=== PATIENT | male | born 2000 | race Caucasian/White ===

== ENCOUNTER 2025-06-02 05:55 | Outpatient (CLI) | payer BC, SELFPAY ==
[2025-06-02] VITALS (8 sets, daily range): BP systolic 121–125; BP diastolic 83–86; PULSE 61–84; RESP 18; TEMP 36.9; O2SAT 95–99; BMI 28.7
--- OUTSIDE RECORDS SUMMARY | 2025-06-02 05:57 | XMS_ITS | Encounter Summary ---
Author Organization [facility] Address [address] [place] [address] Care Team Providers Care Magnaflux Operator Name Role Phone Elsewhere, Pcp Primary Care Provider Unavailabl e Encounter Details Date Type Department Care Team (Latest Contact Info) Description 12/04/2024 Intake [facility] Social History Tobacco Use Types Packs/Day Years Used Date Smoking Tobacco: Never Alcohol Use Standard Drinks/Week Comments Yes 10 (1 standard drink = 0.6 oz pu re alcohol) [facility] Utilities Answer Date Recorded In the past 12 months has [facility] [employer], gas, oil, or water [place] threatened to shut off services in your home? No 12/04/2024 Humiliation, Afraid, Rape, and Kick questionnair e Answer Date Recorded Within the last year, have y ou been afraid of your partner or ex-partner? No 12/04/2024 Within the last year, have y ou been humiliated or emotionally abused in other ways by your partner or ex-partner? No Within the last year, have y ou been kicked, hit, slapped, or otherwise physically hurt by your partner or ex-partner? No 12/04/2024 Within the last year, have y ou been raped or forced to have any kind of sexual activity by your partner or ex-partner? No 12/04/2024 Hunger Vital Sign Answer Date Recorded Within the past 12 months, y ou worried that your food would run out before you got the money to buy more. Never true 12/05/19 25 Within the past 12 months, t he food you bought just didn't last and you didn't have money to get more. Never true 12/04/2024 PRAPARE - Transportation Answer Date Re corded In the past 12 months, has l ack of transportation kept you from medical appointments or from getting medications? No 11/2024 In the past 12 months, has l ack of transportation kept you from meetings, work, or from getting things needed for daily living? No 12/04/2024 Housing Stability Answer Date Recorded What is your living situation today? I have a [facility] place to live 12/04/2024 Sex and Gender Information Value Date Recorded Sex Assigned at Not on file Legal Sex Male 9:26 AM CDT Gender Identity Not on file Sexual Orientation Not on file documented as of this encounter Plan of Treatment Not on file documented as of this encounter Visit Diagnoses Not on filedocumented in this encounter Care Teams Magnaflux Operator Relationship Specialty Start Date End Date Elsewhere, Pcp PCP - General Internal Medicine 12/04/24 documented as of this encounter
--- OUTSIDE RECORDS SUMMARY | 2025-06-02 05:57 | XMS_ITS | Clinical Summary ---
Author Organization [employer] [facility] Address [address] [place] [id number] Care Team Providers Care Lumber Grader Name Role Phone Matthew Estrada MD Primary Care Provider Allergies No known active allergies Medications metoprolol succinate (TOPROL XL) 50 mg sustained-releas e tabletIndication s:HTN (hypertension) Take 1 Tablet (50 mg) by mouth once daily. 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 Encounters Date Type Department Care Team Description 05/26/2025 10:30 AM CDT Office Visit [facility] [address] [place] [address] Matthew Estrada MD Physical 05/26/2025 Travel from Last 3 Months Immunizations Immunization Administration Dates Next Due AMB Influenza, IIV4 PF (=>6 mos Flulaval,Fluzone Fluarix)(Flu Clinic Only) 05/10/2014 DTP 08/06/2006, 2,06/17/2001,11/16,2000 HPV 9 (Gardasil 9) 11/26/2015 Hepatitis A, Unspecified 08/06/2006,04/07/2002 Hepatitis B, Unspecified 06/17/2001,2000,0 2000 Hib Conjugate, Unspecified 04/07/2002,,2000,09/18 Human Papilloma Virus Vaccine 03/30/2013 Influenza A (H1N1), Inactivated 07/23/2009,06/22 Influenza A (H1N1), Inactiva kaiser (Age >=3 Years) 07/23/2009,06/22/2009 Influenza, IIV3 (Age 6-35 mos) 07/06/2009 Influenza, IIV3 (Age >=3 years) 08/17/2012,07/06 Influenza, IIV4 05/10/2014 Influenza,LAIV3 Live Intrana melissa (Flumist) 08/17/2012 Influenza,LAIV4 Live Intrana melissa (Flumist) 08/17/2012 MENINGOCOCCAL VACCINE 2 VIAL [id number] (MENVEO) 12/07/2017,03/30/2013 MMR, Unspecified 08/06/2006,06/17/2001 Oral Polio Vaccine 08/06/2006, 2,06/17/2001,11/16,2000 Pneumococcal, Unspecified 06/17/2001,03/16/2001, 2000 Polio Virus, Unspecified 08/06/2006,12/2001,06/17/2001,11/16,2000 Tdap 04/26/2022,03/30/2013 Varicella Vaccine 08/06/2006,06/17/2001 Family History Medical History Relation Name Comments Genetic Brother Down Syndrome Relation Name Status Comments Brother Father Alive Social History Tobacco Use Types Packs/Day Years Used Date Smoking Tobacco: Never Smokeless Tobacco: Never Tobacco Cessation:Counseling Given: Yes Comments:No exposure Alcohol Use Standard Drinks/Week Comments No 0 (1 standard drink = 0.6 oz pur e alcohol) PHQ-2 Answer Date Recorded PHQ-2 TOTAL SCORE 1 05/26/2025 Social Connections Answer Date Recorded Do you often feel lonely or isolated from those around you? 0 05/26/2025 Financial Resource Strain Answer Date R ecorded Difficulty of Paying Living Expenses 3 05/26/2025 Difficulty of Paying Living Expenses Not on file 05/26/2025 Food Insecurity Answer Date Recorded Do you worry your food will run out before you are able to buy more? 1 05/26/2025 Transportation Needs Answer Date Record ed Does lack of transportation keep you from medica l appointments? 1 05/26/2025 Does lack of transportation keep you from work, meetings or getting things that you need? 1 05/26/2025 Housing Stability Answer Date Recorded What is your housing situation today? 1 05/26/2025 Utilities Answer Date Recorded Do you have trouble paying f or utilities (for example, heat, electricity, water, phone)? 1 05/26/2025 Sex and Gender Information Value Date Recorded Sex Assigned at Not on file Legal Sex Male 7:42 AM SPORTS ADMINISTRATOR Gender Identity Not on file Sexual Orientation Not on file Obstetrics History Last Filed Vital Signs Vital Sign Reading Time Taken Comments Blood Pressure 158/108 05/26/2025 10:47 AM CDT Pulse 88 05/26/2025 10:45 AM CDT Temperature 37.1 C (98.8 F) 12/10/2020 9:50 AM CDT Respiratory Rate 20 08/10/2019 8:41 AM SPORTS ADMINISTRATOR Oxygen Saturation 100% 12/10/2020 9:50 AM CDT Inhaled Oxygen Concentration - - Weight 93.4 kg (206 lb) 05/26/2025 10:45 AM CDT Height 178 cm (5' 10.08) 05/26/2025 10:45 AM CD T Body Mass Index 29.49 05/26/2025 10:45 AM CDT Plan of Treatment Health Maintenance Due Date Last Done Comments HIV for age 15-65 2015 Hepatitis C screening for age 18-79 2018 Influenza Vaccine (#1) 2025 4, 05/10/2014, 08/17/2012, Additional history exists BMI (ht and wt on same day) for age 18+ 05/26/2026 05/26/2025, 12/10/2020, 05/18/2019, Additional history exists Depression screening for age 12+ 05/26/2026 05/26/2025, 06/24/2020, 06/21/2020, Additional history exists Tetanus booster 04/26/2032 04/26/2022, 03/30/2013 RSV vaccine for adults or (1 - 1-dose 75+ series) 2075 Hepatitis B series for 19+ Completed 06/17, 2000, 2000 Pneumococcal series for age 6-49 Aged Out 06/17/2001, 03/16/2001, 2000 No longer eligible based on patient's age to complete this topic HPV series for age 9-45 Completed 11/26/2015, 03/30 Insurance [facility] Care Teams Lumber Grader Relationship Specialty Start Date End Date Matthew Estrada MD [address] [place] [address] PCP - General Family Practice 05/26/25
--- OUTSIDE RECORDS SUMMARY | 2025-06-02 05:57 | XMS_ITS | Clinical Summary ---
Author Organization [facility] Address [address] [place] [address] Care Team Providers Care Security Patrol Driver Name Role Phone Elsewhere, Pcp Primary Care Provider Unavailabl e Source Comments Patient records contain information from all sites at [facility]. For routine questions regarding patient records, call [phone] during business hours, M-F 8:00 AM - 5:00 PM Central Time. Record requests for emergency care only can be directed to [phone] at any time.[facility] Allergies No known active allergies Medications * This document contains information received from the source organization and may not represent a complete record from that organization. acetaminophen (TylenoL) 500 mg tablet Take 1 tablet (500 mg total) by mouth every 6 (six) hours as needed for mild pain or score 1-3 of 10, moderate pain or score 4-6 of 10, headaches or fever (to protect your liver function: Do not take more than 3,000 mg in a 24 hour period). Active Active Problems Problem Noted Date Diagnosed Date Pancreatitis Chronic Recurrent 02/07/2025 Alcohol Induced Acute Pancreatitis With Uninfect ed Necrosis 02/06/2025 Elevated Liver Function Test 12/07/2024 Leukocytosis 12/07/2024 Alcohol Use Unspecified Uncomplicated 12/04/2024 Resolved Problems Problem Noted Date Diagnosed Date Resolved Date Pain Right Upper Quadrant 12/07/2024 Hypokalemia 12/07/2024 12/12/2024 Pancreatitis Acute 12/04/2024 Social History Tobacco Use Types Packs/Day Years Used Date Smoking Tobacco: Never Smokeless Tobacco: Current Tobacco Cessation:Ready to Q uit: Not Asked; Counseling Given: Not Answered Alcohol Use Standard Drinks/Week Comments Yes 10 (1 standard drink = 0.6 oz pu re alcohol) [facility] Utilities Answer Date Recorded In the past 12 months has th e [employer], gas, oil, or water [employer] threatened to shut off services in your home? No 02/06/2025 Humiliation, Afraid, Rape, and Kick questionnair e Answer Date Recorded Within the last year, have y ou been afraid of your partner or ex-partner? No 02/06/2025 Within the last year, have y ou been humiliated or emotionally abused in other ways by your partner or ex-partner? No Within the last year, have y ou been kicked, hit, slapped, or otherwise physically hurt by your partner or ex-partner? No 02/06/2025 Within the last year, have y ou been raped or forced to have any kind of sexual activity by your partner or ex-partner? No 02/06/2025 Hunger Vital Sign Answer Date Recorded Within the past 12 months, y ou worried that your food would run out before you got the money to buy more. Never true 02/07/20 25 Within the past 12 months, t he food you bought just didn't last and you didn't have money to get more. Never true 02/06/2025 PRAPARE - Transportation Answer Date Re corded In the past 12 months, has l ack of transportation kept you from medical appointments or from getting medications? No 01/2025 In the past 12 months, has l ack of transportation kept you from meetings, work, or from getting things needed for daily living? No 02/06/2025 Housing Stability Answer Date Recorded What is your living situation today? I have a [facility] place to live 02/06/2025 Sex and Gender Information Value Date Recorded Sex Assigned at Not on file Legal Sex Male 9:26 AM CDT Gender Identity Not on file Sexual Orientation Not on file Last Filed Vital Signs Vital Sign Reading Time Taken Comments Blood Pressure 150/101 02/08/2025 5:29 PM CDT Pulse 104 02/08/2025 5:29 PM CDT Temperature 36.1 C (97 F) 02/08/2025 5:29 PM CDT Respiratory Rate 19 02/08/2025 5:29 PM CDT Oxygen Saturation 99% 02/08/2025 5:29 PM CDT Inhaled Oxygen Concentration - - Weight 98 kg (216 lb 0.8 oz) 02/08/2025 5:00 AM CDT Height 177.8 cm (5' 10) 02/06/2025 10:29 PM CDT Body Mass Index 31 02/06/2025 10:29 PM CDT Plan of Treatment Health Maintenance Due Date Last Done Comments HIV Screening 2000 Hepatitis C Screening 2000 Tobacco Cessation counseling 2000 Depression Screening (Annual PHQ-2) 08/03/2024 COVID-19 Vaccine ( season) 2025 Influenza Vaccine (#1) 2025 4, 08/17/2012, 07/06/2009 DTaP,Tdap,and Td Vaccines (8 - Td or Tdap) 04/26/2032 04/26/2022, 03/30/2013, 08/06/2006, Additional history exists Hepatitis B Vaccines Completed 06/17/2001, 2000, 2000 Pneumococcal vaccine (0-49 years) Aged Out 06/17/2001, 03/16/2001, 2000 No longer eligible based on patient's age to complete this topic IPV Vaccines Completed 08/06/2006, 11/2006, 04/07/2002, Additional history exists HPV Vaccines Completed 11/26/2015, 03/30/2013 Insurance [facility] [place] [id number] Advance Directives For more information, please contact: [phone] * Full Code (Latest Code Status on File) Date Activated Date Inactivated Comments 02/06/2025 10:29 PM 02/08/2025 8:24 PM Question Answer Comments Full Code: Not Discussed Due to: Patient not available * Full Code Date Activated Date Inactivated Comments 12/04/2024 2:07 PM 12/08/2024 8:34 PM Question Answer Comments Full Code: Discussed Care Teams Security Patrol Driver Relationship Specialty Start Date End Date Elsewhere, Pcp PCP - General Internal Medicine 12/04/24
[2025-06-02 06:34] LABS: Hematocrit* 46.5 % (37.0-53.0); Hemoglobin* 15.9 gm/dL (13.5-17.5); Immature Granulocytes Abs Auto 0.10 K/uL (0.00-0.30); Immature Granulocytes Pct Auto 0.4 %; Lymphocytes Absolute Auto 4.20 K/uL (0.90-2.90); Mean Corpuscular HGB Conc 34 gm/dL (32-36); Mean Corpuscular Hemoglobin 29 pg (26-34); Mean Corpuscular Volume 83 fL (80-100); RDW Coefficient of Variation % 13.3 % (11.5-15.5); Red Blood Count* 5.58 m/uL (4.30-5.90); Slide Review Reflex No; White Blood Count* 17.40 K/uL (4.50-11.00)
[2025-06-02] MEDS: ONDANSETRON 2 MG/ML inj 4 MG IVP (06:35)
--- NOTE | 2025-06-02 06:36 | CRLHL7_ITS ---
For Patients: As a result of the Century Cures Act, medical imaging exams and procedure reports are released immediately into your electronic medical record. You may view this report before your referring provider. If you have questions, please contact your health care provider. INDICATION: Abdominal pain. COMPARISON: None TECHNIQUE: CT examination of the abdomen and pelvis was performed following the uneventful intravenous administration of 98 cc of Isovue 370. Thin section axial images were obtained from the lung bases through the pubic symphysis. Oral contrast was not administered. Please note that all CT scans at this facility use dose modulation, iterative reconstruction, and/or weight-based dosing when appropriate to reduce radiation dose to as low as reasonably achievable. FINDINGS: LUNG BASES: The lung bases as visualized appear normal.The heart size is normal at the lung bases. LIVER/BILIARY SYSTEM:Relatively severe hepatic steatosis with areas of sparing. No focal mass. Gallbladder appears normal.No intra or extrahepatic biliary ductal dilation. ADRENALS: Normal KIDNEYS, URETERS and BLADDER:The kidneys appear normal. No visible mass, calculus or hydronephrosis. The ureters and bladder as visualized appear normal. SPLEEN:Normal appearance. PANCREAS: Relatively severe peripancreatic inflammatory changes. Significant peripancreatic fluid. No evidence of organized collection or necrosis of the pancreas. RETROPERITONEUM and MESENTERY: There is no mass, adenopathy or aortic aneurysm. GASTROINTESTINAL SYSTEM: There is no evidence of diverticulitis, colitis, mechanical obstruction, or appendicitis. The small bowel as visualized appears normal. PELVIS: No mass, adenopathy or free fluid. OSSEOUS STRUCTURES and ABDOMINAL WALL: There is an age-appropriate appearance of the osseous structures.No significant abdominal wall defect. OTHER: No free fluid or free air. IMPRESSION: 1. Severe peripancreatic inflammatory changes. Significant peripancreatic fluid. No evidence of organized fluid collection or necrosis of the pancreas. 2. Severe hepatic steatosis. No visible gallbladder disease. Please note that all CT scans at this facility use dose modulation, iterative reconstruction, and/or weight-based dosing when appropriate to reduce radiation dose to as low as reasonably achievable. Dictated by Luke Becerra MD @ 06/02/2025 7:04:34 AM (Electronically Signed)
[2025-06-02 06:44] LABS: Albumin* 4.8 g/dL (3.3-5.0); Chloride* 108 mmol/L (96-114); Potassium* 3.8 mmol/L (3.6-5.1); Sodium* 143 mmol/L (135-149)
[2025-06-02 06:46] LABS: Blood Urea Nitrogen* 8 mg/dL (5-24); Creatinine* 0.8 mg/dL (0.5-1.5); Est. Creatinine Clearance* 145.75; Estimated Glomerular Filt Rate 126 ml/min
[2025-06-02 06:47] LABS: Alanine Aminotransferase* 177 U/L (4-50); Alkaline Phosphatase* 82 U/L (40-150); Anion Gap 14 mEq/L (7-15); Aspartate Amino Transferase* 105 U/L (12-35); Bilirubin Direct* 0.3 mg/dL (0.0-0.5); Bilirubin Total* 0.7 mg/dL (0.1-1.5); Calcium* 8.8 mg/dL (8.4-10.6); Carbon Dioxide* 21 mmol/L (20-32); Glucose* 157 mg/dL (60-115); Total Protein* 8.2 g/dL (6.0-8.3)
--- NOTE | 2025-06-02 07:02 | ED_ITS ---
HPI - Abdominal Pain General Date Seen: 06/02/25 Chief Complaint: Abdominal Pain Stated Complaint: abdominal pain Time Seen by Provider: 06/02/25 06:08 Source: patient Mode of arrival: ambulatory Limitations: no limitations History of Present Illness HPI narrative: Patient is a 25-year-old male who presents with sudden onset of epigastric pain that began at 4:00 a.m.. He was out drinking Tequila last night despite his history of alcoholic pancreatitis. The pain woke him from sleep. He tried to take some Tylenol but vomited. No hematemesis. No melena. No fevers or chills. His 1st admission for pancreatitis was in December and he had a 2nd admission in January. He claims to have stopped drinking for a couple of months but started up again two weeks ago. He drinks on a daily basis but says it is generally only a couple. He has never been through alcohol treatment. He was prescribed metoprolol at his last clinic visit but he tells me that he takes no medications regularly. He denies any other drug use. Related Data Home Medications ?Medication ?Instructions ?Recorded ?Confirmed No Known Home Medications 06/02/2505/05 Allergies Allergy/AdvReac Type Severity Reaction Status Date / Time No Known Drug Allergies Allergy Verified 06/02/25 07:11 Review of Systems Narrative Review of systems is outlined above otherwise noted to be negative. [facility] Medical History (Updated 06/02/25 @ 07:25 by Yehuda Adams MD) Alcohol-induced pancreatitis ?K85.20 - Alcohol induced acute pancreatitis without necrosis or infection (ICD-10) Social History Smoking Status: Never smoker Do you use any of these nicotine containing products: Vaping Products Second hand tobacco smoke exposure: No How often do you have a drink containing alcohol: monthly or less AUDIT-C Alcohol total score: 1 Non-prescribed substance use: denies use Exam Narrative: Exam Narrative: Vitals noted. HEENT: Conjunctiva clear. No scleral icterus. Tympanic membranes are pearly w miriam bilaterally. Posterior pharynx is clear without erythema or exudate. Neck is supple without adenopathy, thyromegaly, carotid bruit. Lungs: Clear to auscultation in all martínez. No wheezes, rales, rhonchi. Heart: Regular rate and rhythm without murmur. Abdomen: Soft with epigastric tenderness. No guarding, rigidity, rebound. Bowel sounds are normal. No palpable mass. Extremities: No cyanosis or edema. Good distal pulses. Skin: No abnormalities noted of the exposed skin. No jaundice. Neurologic: Awake, alert, fully oriented. Neurologic exam is nonfocal. Const: Vital Signs, click to edit/add: Vital Signs - 24 hr 06/02/25 06:00 06/02/25 06:34 06/02/25 07:03 Temperature 98.5 F 98.5 F Pulse Rate [Right Pulse Oximeter] 84 Respiratory Rate 18 Blood Pressure [Ri ght Upper Arm] 121/85 Pulse Oximetry 99 99 Oxygen Delivery Me thod Room Air Course Course ED Course: Patient seen and examined. IV is established. He is given saline 1 L over 2 hours. Zofran 4 mg IV and Toradol 30 mg IV are given. This helped his nausea but did not improve his pain. He was then given Dilaudid 0.5 mg IV. Labs and a CT scan are ordered. Reevaluation(s) Reevaluation #1: [place] [address]. Basic metabolic panel is normal other than a glucose of 157. LFTs are abnormal with an AST of 105 and an ALT of 177. Lipase is 4961. CT scan of the abdomen and pelvis with IV contrast shows: 1. Severe peripancreatic inflammatory changes. Significant peripancreatic fluid. No evidence of organized fluid collection or necrosis of the pancreas. 2. Severe hepatic steatosis. No visible gallbladder disease. Reevaluation #2: I spoke with our hospital service who kindly agrees to admit him for further workup and pain control. Vital Signs Vital signs: Initial Vital Signs Temperature 98.5 F 06/02/25 06:00 Temperature Source Temporal Artery Scan 06/02/25 06:00 Pulse Rate 84 06/02/25 06:00 Respiratory Rate 18 06/02/25 06:00 Blood Pressure 121/85 06/02/25 06:00 Blood Pressure Mean 97 06/02/25 06:00 Blood Pressure Position Sitting 06/02/25 06:00 Pulse Oximetry 99 06/02/25 06:00 Oxygen Delivery Method Room Air 06/02/25 06:00 Vital Signs Temperature 98.5 F 06/02/25 06:00 Pulse Rate 84 06/02/25 06:00 Respiratory Rate 18 06/02/25 06:00 Blood Pressure 121/85 06/02/25 06:00 Pulse Oximetry 99 06/02/25 06:00 Oxygen Delivery Method Room Air 06/02/25 06:00 Temperature 98.5 F 06/02/25 06:34 Pulse Rate 84 06/02/25 06:00 Respiratory Rate 18 06/02/25 06:00 Blood Pressure 121/85 06/02/25 06:00 Pulse Oximetry 99 06/02/25 07:03 Oxygen Delivery Method Room Air 06/02/25 06:00 Medications Administered Medications: Generic Name Dose Route Start Last Admin Trade Name Freq PRN Reason Stop Dose Admin Sodium Chloride 1,000 mls @ 500 mls/hr 06/02/25 06:21 06/02/25 06:35 0.9 % Sodium Chloride 1000 Ml IV 06/02/25 08:20 500 mls/hr .Q2H TAYLOR Administration Discontinued Medications Generic Name Dose Route Start Last Admin Trade Name Freq PRN Reason Stop Dose Admin Hydromorphone HCl 0.5 mg 06/02/25 06:58 06/02/25 07:04 Hydromorphone 0.5 Mg/0.5 Ml Inj IVP 06/02/25 06:59 0.5 mg ONCE ONE Administration Ketorolac Tromethamine 30 mg 06/02/25 06:20 06/02/25 06:34 Ketorolac 30 Mg/Ml Inj IVP 06/02/25 06:21 30 mg ONCE ONE Administration Ondansetron HCl 4 mg 06/02/25 06:20 06/02/25 06:35 Ondansetron 2 Mg/Ml Inj IVP 06/02/25 06:21 4 mg ONCE ONE Administration MDM - Abdominal Pain Lab Data Labs: Lab Results 06/02/25 Range/Units 06:17 WBC 17.40 H (4.50-11.00) K/uL RBC 5.58 (4.30-5.90) m/uL Hgb 15.9 (13.5-17.5) gm/dL Hct 46.5 (37.0-53.0) % MCV 83 (80-100) fL MCH 29 (26-34) pg MCHC 34 (32-36) gm/dL RDW Coeff of Anny 13.3 (11.5-15.5) % Plt Count 359 (140-440) K/uL Neut % (Auto) 68.9 (42.0-72.0) % Lymph % (Auto) 24.3 (20-44) % [place] % (Auto) 5.6 (0.0-11.0) % Eos % (Auto) 0.6 (0.0-7.0) % Baso % (Auto) 0.2 (0.0-3.0) % Neut # (Auto) 12.00 H (1.7-7.0) K/uL Lymph # (Auto) 4.20 H (0.90-2.90) K/uL [place] # (Auto) 1.00 H (0.00-0.90) K/UL Eos # (Auto) 0.10 (0.00-0.50) K/uL Baso # (Auto) 0.00 (0.00-0.30) K/uL Abs Immat Gran (auto) 0.10 (0.00-0.30) K/uL Imm/Tot Granulo (auto) 0.4 % Sodium 143 (135-149) mmol/L Potassium 3.8 (3.6-5.1) mmol/L Chloride 108 (96-114) mmol/L Carbon Dioxide 21 (20-32) mmol/L Anion Gap 14 (7-15) mEq/L BUN 8 (5-24) mg/dL Creatinine 0.8 (0.5-1.5) mg/dL Estimated Creat Clear 145.75 Estimated GFR 126 ml/min Glucose 157 H (60-115) mg/dL Calcium 8.8 (8.4-10.6) mg/dL Total Bilirubin 0.7 (0.1-1.5) mg/dL Direct Bilirubin 0.3 (0.0-0.5) mg/dL AST 105 H (12-35) U/L ALT 177 H (4-50) U/L Alkaline Phosphatase 82 (40-150) U/L Total Protein 8.2 (6.0-8.3) g/dL Albumin 4.8 (3.3-5.0) g/dL Lipase 4961 H (23-300) U/L Discharge Plan Discharge Clinical Impression: Acute alcoholic pancreatitis Patient Disposition: Admitted As Inpatient Condition: Stable
[2025-06-02 08:41] LABS: Ethanol* 0.14 % (0.01-0.03)
--- NOTE | 2025-06-02 09:44 | PC.NURSE ---
Patient barely arrived to unit and was just starting to get him settled in. As I started to asked him question and get his vitals he asked Do I have to stay here? I said do you not want to stay? No I have some important stuff to do for work.Went and spoke with the provider that had accepted him for admission. She said with his lab levels she really wanted him to stay so if he feels he need to go it will be AMA. Went back and told him that Provider wants you to stay because of you lab levels but if you don't want to do this You will be signing out AMA. He statesOK Paperwork filled out for AMA. IV removed paperwork signed and him and his girlfriend and child left. Explained to him if he started to feel worse please seek care again.
== END 2025-06-02 08:20 | disposition left against medical advice (07) ==
LOC: ED 07:14 → MEDSURG 08:08 → MS OUT 09:02 → MEDSURG 09:02
PROVIDERS: Physician Assistant; Emergency Provider Family Medicine; Visit Provider Family Medicine
DX: K85.20 Alcohol induced acute pancreatitis without necrosis or infection (principal); F41.9 Anxiety disorder, unspecified; I10 Essential (primary) hypertension; K76.0 Fatty (change of) liver, not elsewhere classified
CPT/HCPCS: 36415; 74177; 80048; 80076; 82077; 83690; 85025; 94761; 99283; J1171; J1885; J2405; J7030; Q9967

== ENCOUNTER 2025-06-02 10:11 | Observation (INO) | payer BC, SELFPAY ==
[2025-06-02] VITALS (9 sets, daily range): BP systolic 135–160; BP diastolic 84–111; PULSE 59–82; RESP 18–24; TEMP 35.6–36.8; O2SAT 97–100; BMI 29.3
--- NOTE | 2025-06-02 10:30 | ED.ABDPAIN ---
HPI - Abdominal Pain General Chief Complaint: Abdominal Pain Stated Complaint: Abdominal pain Time Seen by Provider: 06/02/25 10:22 History of Present Illness HPI narrative: Patient is a 25-year-old gentleman who has been drinking Tequila for the last several days. He was admitted to the [facility] unit for acute pancreatitis within the last hour or so and left against medical advice. Patient has not been drinking alcohol since his discharge in hour ago but comes back as he is unable to control is abdominal pain. There has been no changes in his history is had no new symptoms such as vomiting blood in his stool diarrhea fever since his recent assessment. Related Data Home Medications ?Medication ?Instructions ?Recorded ?Confirmed No Known Home Medications 06/02/25 06/02/25 Allergies Allergy/AdvReac Type Severity Reaction Status Date / Time No Known Drug Allergies Allergy Verified 06/02/25 10:21 Review of Systems Status of ROS Reports: 10 or more systems reviewed and unremarkable except as noted in History and below [facility] Medical History Alcohol-induced pancreatitis ?K85.20 - Alcohol induced acute pancreatitis without necrosis or infection (ICD-10) Social History Smoking Status: Never smoker Do you use any of these nicotine containing products: Vaping Products Second hand tobacco smoke exposure: No How often do you have a drink containing alcohol: monthly or less AUDIT-C Alcohol total score: 1 Non-prescribed substance use: denies use Exam Narrative: Exam Narrative: EXAM GENERAL: Patient appears Uncomfortable. EYES: No scleral icterus. LYMPH: No supraclavicular or cervical lymphadenopathy. SKIN: Visible skin seen during exam normal or with benign process only. EXT: No dependent lower extremity pedal edema. HEART: Regular rate and rhythm with no murmurs, rubs, or gallops. LUNGS: Clear to auscultation bilaterally with no crackles or wheezes. ABD: Primarily soft with tenderness on deep palpation midline. PSYCH: Good eye contact, speech is not pressured. Const: Vital Signs, click to edit/add: Vital Signs - 24 hr 06/02/25 10:17 Temperature 97.3 F L Pulse Rate [Right Pulse Oximeter] 82 Respiratory Rate 18 Blood Pressure [Ri ght Upper Arm] 135/84 Pulse Oximetry 98 Oxygen Delivery Me thod Room Air Course Course ED Course: Patient is a 25-year-old gentleman who alcoholic pancreatitis left AMA approximate hour ago returns she is unable to keep up with the pain. Patient is seen in the emergency room case is discussed again with med surg. Patient will be admitted. Vital Signs Vital signs: Initial Vital Signs Temperature 97.3 F L 06/02/25 10:17 Temperature Source Temporal Artery Scan 06/02/25 10:17 Pulse Rate 82 06/02/25 10:17 Pulse Rhythm Regular 06/02/25 10:17 Pulse Strength 3+ Normal 06/02/25 10:17 Respiratory Rate 18 06/02/25 10:17 Blood Pressure 135/84 06/02/25 10:17 Blood Pressure Mean 101 06/02/25 10:17 Blood Pressure Position Sitting 06/02/25 10:17 Pulse Oximetry 98 06/02/25 10:17 Oxygen Delivery Method Room Air 06/02/25 10:17 Vital Signs Temperature 97.3 F L 06/02/25 10:17 Pulse Rate 82 06/02/25 10:17 Respiratory Rate 18 06/02/25 10:17 Blood Pressure 135/84 06/02/25 10:17 Pulse Oximetry 98 06/02/25 10:17 Oxygen Delivery Method Room Air 06/02/25 10:17 Temperature 97.3 F L 06/02/25 10:17 Pulse Rate 82 06/02/25 10:17 Respiratory Rate 18 06/02/25 10:17 Blood Pressure 135/84 06/02/25 10:17 Pulse Oximetry 98 06/02/25 10:17 Oxygen Delivery Method Room Air 06/02/25 10:17 Discharge Plan Discharge Clinical Impression: Pancreatitis Patient Disposition: Admitted As Inpatient Condition: Stable Activity Level: Other Discharge Diet: Other
--- NOTE | 2025-06-02 11:02 | PM.IMHP1 ---
Assessment and Plan Assessment and plan (1) Pancreatitis: Problem comment: -3rd episode, previously hospitalized 12/04/2024 and 02/06/2025 at [facility] -CT shows severe peripancreatic inflammatory changes, significant peripancreatic fluid, no evidence of organized fluid collection or necrosis of the pancreas -lipase 4961, leukocytosis with left shift - recheck in morning -IVF, NPO - advancing to clears when appropriate -pain and nausea management -outpatient follow-up with GI Status: Acute (2) Alcohol use disorder: Problem comment: -reports approx 1.5 bottles tequila weekly/ 5 drinks qod -ETOH 0.14 this morning -Thiamine, folate, MVI -CIWA protocol Status: Acute (3) Hepatic steatosis: Problem comment: -CT shows severe hepatic steatosis -AST 105, ALT 177 -outpatient follow up with GI Status: Acute (4) Hypertension: Problem comment: -prescribed metoprolol XL 50 mg once daily on 05/26/2025 by PCP - has not yet started -start today 06/02 Status: Acute (5) Anxiety: Problem comment: -management options offered by PCP Status: Acute Total Time Spent Total Time Spent: Today I spent 75 minutes seeing the patient, reviewing Expanse and EPIC notes/diagnostics, discussing the care plan with our care time that includes social work, PT/OT, pharmacy, RT, halfway and documenting my impressions and plan in the medical record. Hospitalist- H&P: HPI History of Present Illness Date Seen: 06/02/25 Chief complaint: Abdominal pain Narrative: Hermilo Pascual is a 25 year old male past medical history significant for recent hypertension diagnosis, anxiety, alcohol use, 2 previous episodes of pancreatitis is admitted the hospital from the ED for a 3rd episode of acute pancreatitis. Patient was initially in the ED this morning and recommended for admission. At that time, he did not want to be admitted and left AMA. He returned shortly thereafter with increasing right-sided abdominal pain and nausea. Denies headache or dizziness. Denies chest pain or shortness of breath. No recent fevers. Last episode of vomiting was in the ED. No change in bowels. Employed. Not . Has one child. Drink approx 1.5 bottles of Tequila weekly. Vapes tobacco. Denies drug use. PCP is at [facility]. Review of Systems Narrative: REVIEW OF SYSTEMS: Complete review of systems performed and negative unless otherwise stated in HPI or below. Medical Decision Making Medical Decision Making Code Status: Full code Has patient completed a Health Care Directive: No PFSH PFS Medical History Alcohol use disorder ?F10.90 - Alcohol use, unspecified, uncomplicated (ICD-10) Anxiety ?F41.9 - Anxiety disorder, unspecified (ICD-10) Hypertension ?I10 - Essential (primary) hypertension (ICD-10) Alcohol-induced pancreatitis ?K85.20 - Alcohol induced acute pancreatitis without necrosis or infection (ICD-10) Social History What is your current living situation?: I presently have a place to live Problems where you live: no known problems In the past 12 months, utilities in danger of being shut off: no In past 12 months, lack of transportation kept you from medical appts, meetings, work, or getting things needed for daily living: no In the past 12 mos, have been you worried that your food would run out before you had money to buy more?: never true In the past 12 mos, the food you bought just didn't last and you didn't have money to buy more?: never true Highest level of school completed/degree received: Associate degree: occupational, technical, vocational program Smoking Status: Never smoker Do you use any of these nicotine containing products: Vaping Products Second hand tobacco smoke exposure: No How often do you have a drink containing alcohol: 4 or more times a week Alcohol type: hard liquor How many standard drinks containing alcohol do you have on a typical day: 5 or 6 How often do you have six or more drinks on one occasion: Weekly AUDIT-C Alcohol total score: 9 Non-prescribed substance use: denies use Caffeine: Yes How often does anyone, including family, friends and others, physically hurt you: never How often does anyone, including family, friends and others, insult or talk down to you: never How often does anyone, including family, friends and others, threaten you with harm: never How often does anyone, including family, friends and others, scream or curse at you: never service: No Meds Home Medications and Allergies Home Medications ?Medication ?Instructions ?Recorded ?Confirmed ?Type No Known Home Medications 06/02/25 06/02/25 History Allergies Allergy/AdvReac Type Severity Reaction Status Date / Time No Known Drug Allergies Allergy Verified 06/02/25 10:21 Exam Narrative: Exam Narrative: PHYSICAL EXAM General: Pleasant, conversant, NAD HEENT: Normocephalic, atraumatic, sclera white, EOMI, oral mucosa moist Cardiovascular: RRR, S1S2. No pitting edema Pulmonary: CTA bilaterally without rhonchi, rales, expiratory wheezes. No dyspnea Abdominal: Soft, nondistended, tenderness right upper quadrant and midepigastric region, no guarding Neurological: Alert, answering questions appropriately, cranial nerves intact, no focal findings Extremities: No gross joint deformity or swelling. AROMI. Neurovascularly intact Skin: Warm, dry. Const: Vital Signs, click to edit/add: Vital Signs - 24 hr 06/02/25 10:17 06/02/25 10:48 Temperature 97.3 F L 96.0 F L Pulse Rate [Left R adial] 76 Pulse Rate [Right Pulse Oximeter] 82 Respiratory Rate 18 22 Blood Pressure [Le ft Arm] 152/98 H Blood Pressure [Ri ght Upper Arm] 135/84 Pulse Oximetry 98 99 Oxygen Delivery Me thod Room Air Room Air Hospitalist - H&P: Result Imaging CT scan - abdomen: Attestation: I have reviewed the pertinent imaging results. Radiologist's impression: LUNG BASES: The lung bases as visualized appear normal.The heart size is normal at the lung bases. LIVER/BILIARY SYSTEM:Relatively severe hepatic steatosis with areas of sparing. No focal mass. Gallbladder appears normal.No intra or extrahepatic biliary ductal dilation. ADRENALS: Normal KIDNEYS, URETERS and BLADDER:The kidneys appear normal. No visible mass, calculus or hydronephrosis. The ureters and bladder as visualized appear normal. SPLEEN:Normal appearance. PANCREAS: Relatively severe peripancreatic inflammatory changes. Significant peripancreatic fluid. No evidence of organized collection or necrosis of the pancreas. RETROPERITONEUM and MESENTERY: There is no mass, adenopathy or aortic aneurysm. GASTROINTESTINAL SYSTEM: There is no evidence of diverticulitis, colitis, mechanical obstruction, or appendicitis. The small bowel as visualized appears normal. PELVIS: No mass, adenopathy or free fluid. OSSEOUS STRUCTURES and ABDOMINAL WALL: There is an age-appropriate appearance of the osseous structures.No significant abdominal wall defect. OTHER: No free fluid or free air. IMPRESSION: 1. Severe peripancreatic inflammatory changes. Significant peripancreatic fluid. No evidence of organized fluid collection or necrosis of the pancreas. 2. Severe hepatic steatosis. No visible gallbladder disease.
[2025-06-02] MEDS: METOPROLOL SUCCINATE (XL) 50 MG TAB PO (11:09)
[2025-06-02] MEDS: THIAMINE 100 MG TABLET PO (11:09)
[2025-06-02] MEDS: SODIUM CHLORIDE 0.9 % (FLUSH) 10 ML SYRINGE 5 ML IVF ×3 (11:10→22:00)
--- NOTE | 2025-06-02 17:56 | PC.NURSE ---
Pt a/o x4, ind in room. Reports pain 7-10/10 throughout shift, alleviated with prn meds. Pt on clear liquid diet, tolerated well. L side IV fluids running at this time. pt sleeping, no concerns at this time
[2025-06-03] MEDS: MELATONIN 3 MG TABLET PO (00:05)
[2025-06-03 02:10] VITALS: RESP 18; O2SAT 98
[2025-06-03 02:59] VITALS: PULSE 85; RESP 18; O2SAT 97
[2025-06-03] MEDS: SODIUM CHLORIDE 0.9 % (FLUSH) 10 ML SYRINGE 5 ML IVF ×2 (03:54→08:54)
[2025-06-03 03:55] VITALS: BP 138/101; PULSE 87; RESP 18; TEMP 36.8; O2SAT 97
[2025-06-03 06:20] LABS: Hematocrit* 46.1 % (37.0-53.0); Hemoglobin* 15.8 gm/dL (13.5-17.5); Mean Corpuscular HGB Conc 34 gm/dL (32-36); Mean Corpuscular Hemoglobin 29 pg (26-34); Mean Corpuscular Volume 84 fL (80-100); Red Blood Count* 5.50 m/uL (4.30-5.90); White Blood Count* 16.83 K/uL (4.50-11.00)
[2025-06-03 06:25] LABS: Slide Review Reflex No
--- NOTE | 2025-06-03 06:25 | PC.NURSE ---
Pt alert and oriented x3. Afebrile. Pt reports 6-7/10 pain in abdomen, managed with PRN medication. Pt CIWA scores ranged between 1-9, managed PRN medication per protocol. Pt is up ad dalton in room, voiding and tolerating a clear liquid diet. ?
[2025-06-03 06:26] LABS: Albumin* 4.1 g/dL (3.3-5.0); Chloride* 104 mmol/L (96-114); Potassium* 3.6 mmol/L (3.6-5.1); Sodium* 136 mmol/L (135-149)
[2025-06-03 06:28] LABS: Alanine Aminotransferase* 147 U/L (4-50); Alkaline Phosphatase* 71 U/L (40-150); Aspartate Amino Transferase* 77 U/L (12-35); Bilirubin Total* 1.3 mg/dL (0.1-1.5); Blood Urea Nitrogen* 6 mg/dL (5-24); Carbon Dioxide* 25 mmol/L (20-32); Creatinine* 0.7 mg/dL (0.5-1.5); Est. Creatinine Clearance* 166.57; Estimated Glomerular Filt Rate 131 ml/min
[2025-06-03 06:29] LABS: Calcium* 8.8 mg/dL (8.4-10.6); Glucose* 107 mg/dL (60-115); Total Protein* 7.1 g/dL (6.0-8.3)
[2025-06-03 06:30] LABS: Anion Gap 7 mEq/L (7-15)
[2025-06-03 07:00] VITALS: BP 151/104; PULSE 72; RESP 16; TEMP 36.6; O2SAT 97
[2025-06-03] MEDS: MULTIVITAMIN/MINERALS 1 TABLET 1 TAB PO (08:53)
[2025-06-03] MEDS: FOLIC ACID 1 MG TABLET PO (08:53)
[2025-06-03] MEDS: METOPROLOL SUCCINATE (XL) 50 MG TAB PO (08:53)
[2025-06-03 09:08] VITALS: BP 151/104; PULSE 72; RESP 16; TEMP 36.6; O2SAT 97
[2025-06-03 11:00] VITALS: BP 133/108; PULSE 78; RESP 16; TEMP 36.6; O2SAT 99
[2025-06-03] MEDS: THIAMINE 100 MG TABLET PO (12:06)
--- NOTE | 2025-06-03 14:36 | PM.DS1 ---
DS: Providers Provider Date Seen: 06/03/25 Date of admission: 06/02/25 10:43 Primary care physician: Not a Local Provider Admitting Clinician: Rachell Hankins MD Attending Physician on discharge: Rachell Hankins MD DS: Diagnosis Discharge Diagnosis (1) Pancreatitis: Status: Acute Problem details: -3rd episode, previously hospitalized 12/04/2024 and 02/06/2025 at [facility] -CT shows severe peripancreatic inflammatory changes, significant peripancreatic fluid, no evidence of organized fluid collection or necrosis of the pancreas -lipase 4961, leukocytosis with left shift - recheck in morning -IVF, NPO - advancing to clears when appropriate -pain and nausea management -outpatient follow-up with GI -06/03: Tolerated soft diet no nausea vomiting or abdominal pain after having oxycodone orally. Patient has improved immensely. (2) Alcohol use disorder: Status: Acute Problem details: -reports approx 1.5 bottles tequila weekly/ 5 drinks qod -ETOH 0.14 this morning -Thiamine, folate, MVI -CIWA protocol -counseled on alcohol quitting, explaining all the consequences and risks over time. (3) Hepatic steatosis: Status: Acute Problem details: -CT shows severe hepatic steatosis -AST 105, ALT 177 -outpatient follow up with GI (4) Hypertension: Status: Acute Problem details: -prescribed metoprolol XL 50 mg once daily on 05/26/2025 by PCP - has not yet started -start today 06/02 (5) Anxiety: Status: Acute Problem details: -management options offered by PCP DS: Summary Hospital Course Hospital Course: Patient with past medical history of alcohol use disorder and recurrent acute pancreatitis episodes who presents for his 3rd episode of pancreatitis. CT shows severe peripancreatic inflammatory changes, significant peripancreatic fluid, no evidence of organized fluid collection or necrosis of the pancreas. Patient was treated with IV fluids, and improved immensely. Counseled on alcohol quitting and on outpatient follow-up with GI. In addition patient was encouraged to find a primary care physician. He was given a prescription for liver function testing in 1 week after discharge and then in a month and to follow up with PCP/GI. Status at Discharge Functional status at discharge: independent ambulation Overall status at discharge: patient is back to baseline Time Spent with Patient Time attestation: Total time spent providing and/or coordinating discharge services: Exam Narrative: Exam Narrative: Physical exam GENERAL: Comfortable, no acute distress. HEAD AND NECK: Atraumatic, normocephalic CARDIOVASCULAR: RRR. Normal S1, S2. No murmurs. RESPIRATORY: Clear to auscultation B/L. Good air entry B/L. GASTROINTESTINAL: Not distended, not tender to palpation. NEUROLOGY: Alert, awake, oriented X 3. Normal speech. PSYCH: Normal mood, normal affect. Const: Vital Signs, click to edit/add: Vital Signs - 24 hr 06/02/25 14:54 06/02/25 15:00 06/02/25 19:00 Temperature 97.1 F L 97.1 F L 98.3 F Pulse Rate [Left R adial] 59 L 59 L 78 Respiratory Rate 18 18 18 Blood Pressure [Le ft Arm] 144/90 H 144/90 H 150/111 H Pulse Oximetry 97 97 100 Oxygen Delivery Nv thod Room Air Room Air Room Air 06/02/25 20:03 06/02/25 22:00 06/02/25 23:55 Temperature 98.0 F Pulse Rate [Left R adial] 75 82 Respiratory Rate 18 18 Blood Pressure [Le ft Arm] 160/108 H 160/107 H 148/87 H Pulse Oximetry 99 98 Oxygen Delivery Nv thod Room Air Room Air 06/03/25 02:10 06/03/25 02:59 06/03/25 03:55 Temperature 98.2 F Pulse Rate [Left R adial] 85 87 Respiratory Rate 18 18 18 Blood Pressure [Le ft Arm] 138/101 H Pulse Oximetry 98 97 97 [facility] Room Air 06/03/25 07:00 06/03/25 09:08 Temperature 97.9 F 97.9 F Pulse Rate [Left R adial] 72 72 Respiratory Rate 16 16 Blood Pressure [Le ft Arm] 151/104 H 151/104 H Pulse Oximetry 97 97 Oxygen Delivery Nv thod Room Air Room Air DS: Data Data Completed and Pending Labs on day of discharge: Labs from last 24 hours 06/03/25 05:59 WBC 16.83 H RBC 5.50 Hgb 15.8 Hct 46.1 MCV 84 MCH 29 MCHC 34 Plt Count 269 Sodium 136 Potassium 3.6 Chloride 104 Carbon Dioxide 25 Anion Gap 7 BUN 6 Creatinine 0.7 Estimated Creat Clear 166.57 Estimated GFR 131 Glucose 107 Calcium 8.8 Total Bilirubin 1.3 AST 77 H ALT 147 H Alkaline Phosphatase 71 Total Protein 7.1 Albumin 4.1 Lipase 4485 H Discharge Plan Discharge Disposition: Home w/ Parent or Adult Date of Admission: 06/02/25 10:43 Attending Provider on Discharge: Sandy Han Primary Care Provider: Provider,Not a Local Condition: Stable Anticipated Discharge Date/Time: 06/03/25 14:24 Discharge Medications: New oxycodone 5 mg capsule 5 mg PO Q8H PRN (Reason: pain) Qty: 9 0RF No Action No Known Home Medications Discharge Orders: Discharge Order (Routine); Ordered 06/03/25 Ordered By: Sandy Han Patient Education: Oxycodone, Rapid Release (By mouth), Pancreatitis (DC) Additional Instructions: You need to repeat liver function test in 1 week from now and then 1 month from now I ordered a prescription for that. You need to have a primary care physician so you can follow-up with them As we discussed it is very important that you quit alcohol as it will lead to liver fibrosis and then/cirrhosis over time. Activity Level: Activity as Tolerated and Other Discharge Diet: Regular and Other Diet Detail: soft diet then regular as tolerated Follow Up Appointments: Rommel Tinsley MD [Referring, Family Practice] - 06/05/25 2:40 pm Referral Note: [facility] for [facility] follow-up. Provider,Not a Local [Primary Care Provider, Family Practice] Forms: [facility]School [facility], [facility] Instructions
--- NOTE | 2025-06-03 17:48 | PC.NURSE ---
Discharge - Pt alert, oriented, cooperative. Up independently in room and tolerating RA and advancing of diet pe MD. Pt reported pain in abdomen as 6/10, given medication per MAR with pt reporting improved comfort. RN provided education related to diet, follow up, and alcohol cessation. Pt verbalized understanding and had no further questions for RN. IV removed with catheter intact. Pt d/c'd to home with significant other via ambulation at approximately 1550.
== END 2025-06-03 15:50 | disposition home or self-care (01) ==
LOC: ED 10:35 → MEDSURG 10:43
PROVIDERS: Physician Assistant; Admitting Provider Family Medicine; Emergency Provider Internal Medicine; Visit Provider Family Medicine
DX: K85.20 Alcohol induced acute pancreatitis without necrosis or infection (principal); F41.9 Anxiety disorder, unspecified; I10 Essential (primary) hypertension; K76.0 Fatty (change of) liver, not elsewhere classified
CPT/HCPCS: 36415; 80053; 83690; 85027; 96374; 96375; 96376; 99283; 99285; A9153; A9270; J1171; J7030